=== PATIENT | male | born 1950 | race Caucasian/White ===

== ENCOUNTER 2017-08-29 22:29 | Emergency (ER) | payer MEDICARE, OTHER ==
[2017-08-29] MEDS ORDERED: Acetaminophen/oxyCODONE 325-5 MG Tab PO ONE ×2 (22:30)
[2017-08-29] MEDS ORDERED: Ondansetron 4 MG Tab.DIS PO ONE (22:30)
[2017-08-29 22:39] VITALS: BP 157/103
[2017-08-29] MEDS ORDERED: Sodium Chloride 0.9% 1,000 ML IV ONE (22:39)
--- NOTE | 2017-08-29 23:15 | EDM.PDOC ---
ED HPI GENERAL MEDICAL PROBLEM - General Chief Complaint: Abdominal Pain Stated Complaint: right side pain, fever Time Seen by Provider: 08/29/17 22:36 Source of Information: Reports: Patient History Limitations: Reports: No Limitations - History of Present Illness INITIAL COMMENTS - FREE TEXT/NARRATIVE: This patient is a 67 year old female that presents to the ER. Patient reports that he got home and ate a cheese sandwhich and a hamburger and beans, then developed abdominal pain at about 9pm. Patient reports that he did have nausea. He reprots he became diaphoretic. 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 He reports he is scheduled for biopsies on Tuesday and Scope on in [facility]. Patient reports that he also had chills and thought he may have a fever. Patient reports pain is in the RLQ and umbilical region. Patient denies chavez, dizziness, v , d, cough, cold congestion, neck pain, neck stiffness, cp, soa, urinary/bowel changes. Onset: Today Onset Date: 08/29/17 Onset Time: 21:00 Duration: Improving Location: Reports: Abdomen Quality: Reports: Dull, Sharp Severity: Moderate Improves with: Reports: None Worsens with: Reports: None Associated Symptoms: Reports: Diaphoresis, Fever/Chills, Nausea/Vomiting. Denies: Confusion, Chest Pain, Cough, cough w sputum, Headaches, Loss of Appetite, Malaise, Rash, Seizure, Shortness of Breath, Syncope, Weakness Right Middle Abdominal Pain Score (Numeric/FACES): 9 - Related Data Allergies Allergy/AdvReac Type Severity Reaction Status Date / Time erythromycin base Allergy Indigestion Verified 08/29/17 22:41 Home Meds: Home Meds Aspirin [Children's Aspirin] 81 mg PO DAILY 12/28/14 [History] Cholecalciferol (Vitamin D3) [Vitamin D] 5,000 mg PO DAILY 12/28/14 [History] Losartan [Cozaar] 50 mg PO DAILY 12/28/14 [History] Metoprolol Succinate 25 mg PO DAILY 12/28/14 [History] Ranitidine [Zantac] 150 mg PO DAILY 12/28/14 [History] Social & Family History - Tobacco Use Smoking Status *Q: Never Smoker Second Hand Smoke Exposure: No - Alcohol Use Days Per Week of Alcohol Use: 0 - Recreational Drug Use Recreational Drug Use: No ED ROS GENERAL - Review of Systems Review Of Systems: See Below Constitutional: Reports: Fever, Chills, Diaphoresis HEENT: Reports: No Symptoms Respiratory: Reports: No Symptoms Cardiovascular: Reports: No Symptoms Endocrine: Reports: No Symptoms GI/Abdominal: Reports: Abdominal Pain, Nausea. Denies: Diarrhea, Vomiting : Reports: No Symptoms Musculoskeletal: Reports: No Symptoms Skin: Reports: No Symptoms Neurological: Reports: No Symptoms Psychiatric: Reports: No Symptoms Hematologic/Lymphatic: Reports: No Symptoms Immunologic: Reports: No Symptoms ED EXAM, GI/ABD - Physical Exam Exam: See Below Exam Limited By: No Limitations General Appearance: Alert, WD/WN, No Apparent Distress Eyes: Bilateral: Normal Appearance Ears: Normal External Exam, Normal Canal, Hearing Grossly Normal, Normal TMs Nose: Normal Inspection, Normal Mucosa, No Blood Throat/Mouth: Normal Inspection, Normal Lips, Normal Teeth, Normal Gums, Normal Oropharynx, Normal Voice, No Airway Compromise Head: Atraumatic, Normocephalic Neck: Normal Inspection, Supple, Non-Tender, Full Range of Motion Respiratory/Chest: No Respiratory Distress, Lungs Clear, Normal Breath Sounds, No Accessory Muscle Use, Chest Non-Tender Cardiovascular: Normal Peripheral Pulses, Regular Rate, Rhythm, No Edema, No Gallop, No JVD, No Murmur, No Rub GI/Abdominal Exam: Normal Bowel Sounds, Soft, No Organomegaly, No Abnormal Bruit , No Mass, Pelvis Stable, Distended, Rebound, Tender (umbilical. RLQ. ) Back Exam: Normal Inspection, Full Range of Motion. No: CVA Tenderness (L), CVA Tenderness (R) Extremities: Normal Inspection, Normal Range of Motion, Non-Tender, No Pedal Edema, Normal Capillary Refill Neurological: Alert, Oriented, Normal Cognition, Normal Gait, No Motor/Sensory Deficits Psychiatric: Normal Affect, Normal Mood Skin Exam: Warm, Dry, Intact, Normal Color, No Rash Lymphatic: No Adenopathy Course - Vital Signs Last Recorded V/S: Last Vital Signs Temp 98.2 F 08/29/17 22:29 Pulse 83 08/29/17 22:29 Resp 20 08/29/17 22:29 BP 157/103 H 08/29/17 22:29 Pulse Ox 96 08/29/17 22:29 - Orders/Labs/Meds Orders: Active Orders 24 hr Category Date Time Status Abdomen Pelvis w Cont [CT] Stat Exams 08/29/17 22:39 Taken CULTURE BLOOD [BC] Stat Lab 08/29/17 23:15 Received CULTURE BLOOD [BC] Stat Lab 08/29/17 23:20 Received Acetaminophen/oxyCODONE [Take Home: Acetaminophen/ Med 08/30/17 01:25 Once oxyCODON, 2 Tab Pack] 2 packet PO ONETIME ONE Ondansetron [Take Home: Ondansetron ODT 4 MG, 2 Tab Med 08/30/17 01:25 Once Pack] 1 packet PO ONETIME ONE Tamsulosin [Flomax] Med 08/30/17 01:25 Once 0.4 mg PO ONETIME ONE Blood Culture x2 Reflex Set [OM.PC] Stat Oth 08/29/17 22:38 Ordered Labs: Laboratory Tests 08/29/17 08/29/17 08/29/17 Range/Units 23:00 23:10 23:15 WBC 12.4 H (5.0-10.0) 10^3/uL RBC 4.45 L (4.50-6.00) 10^6/uL Hgb 13.4 L (14.0-18.0) g/dL Hct 39.7 L (40.0-54.0) % MCV 89.2 (82.0-94.0) fL MCH 30.1 (27.0-32.0) pg MCHC 33.8 (33.0-38.0) g/dL RDW Coeff of Willa 12.4 (11.0-15.0) % Plt Count 310 (150-400) 10^3/uL Neut % (Auto) 83.1 (35-85) % Lymph % (Auto) 8.1 L (10-55) % Faulk % (Auto) 8.2 (0-16) % Eos % (Auto) 0.4 (0-5) % Baso % (Auto) 0.2 (0-3) % Neut # (Auto) 10.30 H (1.80-7.00) 10^3/uL Lymph # (Auto) 1.01 (1.00-4.80) 10^3/uL Faulk # (Auto) 1.02 H (0.00-0.80) 10^3/uL Eos # (Auto) 0.05 (0.00-0.45) 10^3/uL Baso # (Auto) 0.02 10^3/uL Sodium 139 (136-145) mEq/L Potassium 3.8 (3.5-5.0) mEq/L Chloride 104 (98-106) mEq/L Carbon Dioxide 26 (21-32) mmol/L BUN 18 D (7-18) mg/dL Creatinine 1.3 (0.7-1.3) mg/dL Est Cr Clr Drug Dosing 57.71 mL/min Estimated GFR (MDRD) 55 L (>=60) mL/min Glucose 168 H D (75-99) mg/dL Lactic Acid (0.4-2.0) mmol/L Calcium 9.2 (8.4-10.1) mg/dL Total Bilirubin 0.4 (0.0-1.0) mg/dL AST 26 (15-37) U/L ALT 29 (12-78) U/L Alkaline Phosphatase 132 H (46-116) U/L Troponin I (0.00-0.06) ng/mL Total Protein 7.2 (6.4-8.2) g/dL Albumin 3.3 L (3.4-5.0) g/dL Amylase 60 (25-115) U/L Urine Color Dark yellow (YELLOW) Urine Appearance Slightly cloudy (CLEAR) Urine pH 7.0 (4.5-8.0) Ur Specific Doon 1.020 (1.003-1.020) Urine Protein 30 H (NEGATIVE) mg/dL Urine Glucose (UA) Negative (NEGATIVE) mg/dL Urine Ketones 15 H (NEGATIVE) mg/dL Urine Occult Blood Large H (NEGATIVE) Urine Nitrite Negative (NEGATIVE) Urine Bilirubin Negative (NEGATIVE) Urine Urobilinogen 0.2 (0.2-1.0) EU/dL Ur Leukocyte Esterase Negative (NEGATIVE) Urine RBC >100 H (0-5) /HPF Urine WBC 0-5 (0-5) /HPF Ur Squamous Epith Cells Occasional H (NOT SEEN) /HPF 08/29/17 08/29/17 Range/Units 23:15 23:15 WBC (5.0-10.0) 10^3/uL RBC (4.50-6.00) 10^6/uL Hgb (14.0-18.0) g/dL Hct (40.0-54.0) % MCV (82.0-94.0) fL MCH (27.0-32.0) pg MCHC (33.0-38.0) g/dL RDW Coeff of Willa (11.0-15.0) % Plt Count (150-400) 10^3/uL Neut % (Auto) (35-85) % Lymph % (Auto) (10-55) % Faulk % (Auto) (0-16) % Eos % (Auto) (0-5) % Baso % (Auto) (0-3) % Neut # (Auto) (1.80-7.00) 10^3/uL Lymph # (Auto) (1.00-4.80) 10^3/uL Faulk # (Auto) (0.00-0.80) 10^3/uL Eos # (Auto) (0.00-0.45) 10^3/uL Baso # (Auto) 10^3/uL Sodium (136-145) mEq/L Potassium (3.5-5.0) mEq/L Chloride (98-106) mEq/L Carbon Dioxide (21-32) mmol/L BUN (7-18) mg/dL Creatinine (0.7-1.3) mg/dL Est Cr Clr Drug Dosing mL/min Estimated GFR (MDRD) (>=60) mL/min Glucose (75-99) mg/dL Lactic Acid 2.2 H (0.4-2.0) mmol/L Calcium (8.4-10.1) mg/dL Total Bilirubin (0.0-1.0) mg/dL AST (15-37) U/L ALT (12-78) U/L Alkaline Phosphatase (46-116) U/L Troponin I < 0.017 (0.00-0.06) ng/mL Total Protein (6.4-8.2) g/dL Albumin (3.4-5.0) g/dL Amylase (25-115) U/L Urine Color (YELLOW) Urine Appearance (CLEAR) Urine pH (4.5-8.0) Ur Specific Doon (1.003-1.020) Urine Protein (NEGATIVE) mg/dL Urine Glucose (UA) (NEGATIVE) mg/dL Urine Ketones (NEGATIVE) mg/dL Urine Occult Blood (NEGATIVE) Urine Nitrite (NEGATIVE) Urine Bilirubin (NEGATIVE) Urine Urobilinogen (0.2-1.0) EU/dL Ur Leukocyte Esterase (NEGATIVE) Urine RBC (0-5) /HPF Urine WBC (0-5) /HPF Ur Squamous Epith Cells (NOT SEEN) /HPF Meds: Medications Discontinued Medications Generic Name Dose Route Start Last Admin Trade Name Freq PRN Reason Stop Dose Admin Sodium Chloride 1,000 mls @ 1,000 mls/hr 08/29/17 22:39 08/29/17 23:03 Normal Saline IV 08/29/17 23:38 1,000 mls/hr .BOLUS ONE Administration Iopamidol 100 ml 08/29/17 23:19 08/29/17 23:44 Isovue-300 (61%) IVPUSH 08/29/17 23:20 100 ml ONETIME ONE Administration Morphine Sulfate 4 mg 08/30/17 00:26 08/30/17 00:36 Morphine IVPUSH 08/30/17 00:27 4 mg ONETIME ONE Administration Ondansetron HCl 4 mg 08/30/17 00:26 08/30/17 00:36 Zofran IVPUSH 08/30/17 00:27 4 mg NOW STA Administration - Radiology Interpretation Free Text/Narrative:: CT Abd/Pelvis: Discussed with radiologist; 6mm stone left upper ureter. Masses present from previous scan. Only acute change from pervious scan is ureter stone. CT Results Date: 08/30/17 CT Results Time: 01:20 - Re-Assessments/Exams Free Text/Narrative Re-Assessment/Exam: 08/30/17 00:30 Patient does now report he is having an urge to urinate and right flank pain. He thinks is may be a kidney stone now. Patient does have hematuria. Departure - Departure Time of Disposition: 01:29 Disposition: Home, Self-Care 01 Condition: Fair Clinical Impression: Ureteral stone - Discharge Information Instructions: Pain Medicine Instructions, [id number], Kidney Stones, Easy-to- Read Referrals: Blayne Schwartz MD [Primary Care Provider] - Forms: ED Department Discharge Additional Instructions: Followup with your primary care provider Followup with scheduled tests in [place] Return to the ER for worsening of condition or any emergent concerns Increase fluids Percocet 5/325mg 1-2 pills every 4-6 hours as needed for pain #15 no refill, #4 take home. Zofran 4mg ODT 1 pill every 6 hours as needed for nausea #12 no refill, #2 take home. Flomax 0.4mg 1 pill once a day #7 no refill - My Orders Last 24 Hours: My Active Orders 08/29/17 22:38 Blood Culture x2 Reflex Set [OM.PC] Stat 08/29/17 22:39 Abdomen Pelvis w Cont [CT] Stat 08/29/17 23:15 CULTURE BLOOD [BC] Stat 08/29/17 23:20 CULTURE BLOOD [BC] Stat 08/30/17 01:25 Acetaminophen/oxyCODONE [Take Home: Acetaminophen/oxyCODON, 2 Tab Pack] 2 packet PO ONETIME ONE Ondansetron [Take Home: Ondansetron ODT 4 MG, 2 Tab Pack] 1 packet PO ONETIME ONE Tamsulosin [Flomax] 0.4 mg PO ONETIME ONE - Assessment/Plan Last 24 Hours: My Active Orders 08/29/17 22:38 Blood Culture x2 Reflex Set [OM.PC] Stat 08/29/17 22:39 Abdomen Pelvis w Cont [CT] Stat 08/29/17 23:15 CULTURE BLOOD [BC] Stat 08/29/17 23:20 CULTURE BLOOD [BC] Stat 08/30/17 01:25 Acetaminophen/oxyCODONE [Take Home: Acetaminophen/oxyCODON, 2 Tab Pack] 2 packet PO ONETIME ONE Ondansetron [Take Home: Ondansetron ODT 4 MG, 2 Tab Pack] 1 packet PO ONETIME ONE Tamsulosin [Flomax] 0.4 mg PO ONETIME ONE Plan: PLEASE SEE RN NOTE FOR PFSH.
[2017-08-29] MEDS ORDERED: Iopamidol 612 MG/ML 100 ML Bottle IVPUSH ONE (23:19)
[2017-08-30] MEDS ORDERED: Morphine 4 MG/ML Syringe IVPUSH ONE (00:26)
[2017-08-30] MEDS ORDERED: Ondansetron 4 MG/2 ML SDV IVPUSH STA (00:26)
[2017-08-30] MEDS ORDERED: Take Home: Acetaminophen/oxyCODONE 325-5 MG, 2 Tab Pack PO ONE (01:25)
[2017-08-30] MEDS ORDERED: Tamsulosin 0.4 MG Cap.ER PO ONE (01:25)
[2017-08-30] MEDS ORDERED: Take Home: Ondansetron 4 MG Tab.DIS, 2 Tab Pack PO ONE (01:25)
== END 2017-08-30 01:43 | disposition home or self-care (01) ==
LOC: CC.ED 22:29
DX: N20.1 Calculus of ureter (principal); Z79.82 Long term (current) use of aspirin; Z79.899 Other long term (current) drug therapy; Z88.1 Allergy status to other antibiotic agents
CPT/HCPCS: 36415; 74177; 80053; 81001; 82150; 83605; 84484; 85025; 87040; 96361; 96374; 96375; 99284; A9270; J2270; J2405; J7030; Q9967; 96365

== ENCOUNTER 2018-02-10 10:11 | Inpatient (IN) | payer MEDICARE, OTHER ==
[2018-02-10] MEDS ORDERED: Lactated Ringers 1,000 ML IV ONE (10:53)
--- NOTE | 2018-02-10 10:54 | EDM.PDOC ---
ED HPI GENERAL MEDICAL PROBLEM - General Chief Complaint: General Stated Complaint: THINK DEHYDRATED Time Seen by Provider: 02/10/18 10:38 Source of Information: Reports: Patient History Limitations: Reports: No Limitations - History of Present Illness INITIAL COMMENTS - FREE TEXT/NARRATIVE: Ronaldo is a pleasant 67 year old male with a PMH of lymphoma, hypertension, hyperlipidemia, BPH, Type II DM, who presents to the ED with complaints of fatigue and weakness. He has also had a fever, as high as 102 deg F, last evening. He reports at the time of that temperature, he did have a heating pad on. His fever has been ~ 100.5 deg F since then. He reports he just finished a 6 week round of chemo therapy on Tuesday. He reports that they always do a spinal tap at his visits. They initially thought they saw something on the culture, but it ended up being negative. He reports he spent a couple extra days in [place] awaiting these results. He reports he did come in for IVF on 08/2018 as he was feeling weak. He reports that yesterday evening he began feeling very run down. He reports that through the night he had a fever and was extremely weak. He reports that his hemoglobin as 7.9 last time it was checked. He reports he has been somewhat short of breath. Denies any cough, chest pain, urinary symptoms, vomiting, diarrhea. He reports he has been somewhat nauseated. He has not been eating or drinking much the last few days. Onset Date: 02/03/18 Duration: Getting Worse Location: Reports: Generalized Associated Symptoms: Reports: Fever/Chills, Loss of Appetite, Shortness of Breath, Weakness. 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 - Related Data Allergies Allergy/AdvReac Type Severity Reaction Status Date / Time erythromycin base Allergy Indigestion Verified 02/10/18 10:14 hydromorphone [From Dilaudid] Allergy Nausea and Verified 02/10/18 10:14 Vomiting Home Meds: Home Meds Cholecalciferol (Vitamin D3) [Vitamin D] 5,000 mg PO DAILY 12/28/14 [History] Losartan [Cozaar] 50 mg PO DAILY 12/28/14 [History] Metoprolol Succinate 25 mg PO DAILY 12/28/14 [History] Ranitidine [Zantac] 150 mg PO DAILY 12/28/14 [History] Sertraline [Zoloft] 50 mg PO DAILY 10/25/17 [History] Loratadine [Claritin] 10 mg PO DAILY 01/26/18 [History] Polyethylene Glycol 3350 [MiraLAX] 17 gm PO DAILY 01/26/18 [History] Sennosides [Senna] 8.6 mg PO DAILY 01/26/18 [History] diphenhydrAMINE [Benadryl] 25 mg PO DAILY 01/26/18 [History] Past Medical History Cardiovascular History: Reports: Hypertension Genitourinary History: Reports: Renal Calculus - Past Surgical History HEENT Surgical History: Reports: Other (See Below) Other HEENT Surgeries/Procedures: lifted eye lids Cardiovascular Surgical History: Reports: None GI Surgical History: Reports: Colonoscopy Male Surgical History: Reports: None Social & Family History - Family History Family Medical History: Noncontributory - Tobacco Use Smoking Status *Q: Never Smoker Second Hand Smoke Exposure: No - Alcohol Use Days Per Week of Alcohol Use: 0 - Recreational Drug Use Recreational Drug Use: No ED ROS GENERAL - Review of Systems Review Of Systems: See Below Constitutional: Reports: Fever, Chills, Weakness, Fatigue, Decreased Appetite HEENT: Reports: Other (tongue numbness & hoarseness) Respiratory: Reports: Shortness of Breath. Denies: Wheezing, Pleuritic Chest Pain, Cough, Sputum, Hemoptysis Cardiovascular: Reports: Dyspnea on Exertion, Lightheadedness. Denies: Chest Pain, Blood Pressure Problem, Edema, Palpitations, Syncope Endocrine: Reports: Fatigue GI/Abdominal: Reports: Decreased Appetite, Nausea. Denies: Abdominal Pain, Black Stool, Bloody Stool, Constipation, Diarrhea, Hematochezia, Melena, Vomiting : Reports: No Symptoms. Denies: Dysuria, Frequency, Urgency ED EXAM, GENERAL - Physical Exam Exam: See Below Exam Limited By: No Limitations General Appearance: Alert, Moderate Distress Eye Exam: Bilateral Eye: PERRL Throat/Mouth: Normal Inspection, Normal Lips, Normal Teeth, Normal Gums, Normal Oropharynx, Normal Voice, No Airway Compromise, Other (dry mucous membranes) Head: Atraumatic, Normocephalic Neck: Normal Inspection, Supple, Non-Tender, Full Range of Motion Respiratory/Chest: No Respiratory Distress, Lungs Clear, Normal Breath Sounds, No Accessory Muscle Use, Chest Non-Tender Cardiovascular: Normal Peripheral Pulses, Regular Rate, Rhythm, No Edema, No Gallop, No JVD, No Murmur, No Rub GI/Abdominal: Normal Bowel Sounds, Soft, Non-Tender, No Organomegaly, No Distention, No Abnormal Bruit, No Mass Back Exam: Normal Inspection, Full Range of Motion. No: CVA Tenderness (L), CVA Tenderness (R) Extremities: Normal Inspection, Normal Range of Motion, Non-Tender, Normal Capillary Refill, No Pedal Edema Neurological: Alert, Oriented, CN II-XII Intact, Normal Cognition, Normal Gait, Normal Reflexes, No Motor/Sensory Deficits Psychiatric: Normal Affect, Normal Mood Skin Exam: Warm, Dry, Intact, Pallor Lymphatic: No Adenopathy Course - Vital Signs Last Recorded V/S: Last Vital Signs Temp 99.1 F 02/11/18 10:16 Pulse 120 H 02/11/18 10:16 Resp 28 H 02/11/18 10:16 BP 94/55 L 02/11/18 10:16 Pulse Ox 100 02/11/18 10:16 - Orders/Labs/Meds Orders: Active Orders 24 hr Category Date Time Status Up With Assistance [RC] .PRN Care 02/10/18 11:36 Active Vital Signs [RC] 0000,0400,0800,1200,1600,2000 Care 02/10/18 11:36 Active Consistent Carbohydrate Diet [DIET] Diet 02/10/18 Lunch Active BASIC METABOLIC PANEL,BMP [CHEM] DAILY Lab 02/12/18 06:00 Ordered BASIC METABOLIC PANEL,BMP [CHEM] DAILY Lab 02/13/18 06:00 Ordered C-REACTIVE PROTEIN [CHEM] DAILY Lab 02/12/18 06:00 Ordered C-REACTIVE PROTEIN [CHEM] DAILY Lab 02/13/18 06:00 Ordered CBC WITH AUTO DIFF [HEME] DAILY Lab 02/12/18 06:00 Ordered CBC WITH AUTO DIFF [HEME] DAILY Lab 02/13/18 06:00 Ordered Acetaminophen [Tylenol] Med 02/10/18 11:36 Active 650 mg PO Q4H PRN Magnesium Hydroxide [Milk of Magnesia] Med 02/10/18 11:36 Active 30 ml PO Q12H PRN Meropenem [Merrem] Med 02/10/18 12:00 Active 1 gm IVPUSH Q8H Temazepam [Restoril] Med 02/10/18 11:36 Active 15 mg PO BEDTIME PRN Transfuse Platelets [COMM] Routine Oth 02/10/18 11:36 Ordered Resuscitation Status Routine Resus Stat 02/10/18 11:31 Ordered Medication Orders Acetaminophen (Tylenol) 650 mg PO Q4H PRN PRN Reason: Pain (Mild 1-3)/fever Last Admin: 02/10/18 23:43 Dose: 650 mg Admin: 02/10/18 16:19 Dose: 650 mg Diphenhydramine HCl (Benadryl) 25 mg PO DAILY [facility] Last Admin: 02/11/18 07:50 Dose: 25 mg Famotidine (Pepcid) 20 mg PO DAILY [facility] Last Admin: 02/11/18 07:52 Dose: 20 mg Lactated Ringer's (Ringers, Lactated) 1,000 mls @ 150 mls/hr IV ASDIRECTED [facility] Last Admin: 02/11/18 07:48 Dose: 150 mls/hr Potassium Chloride 40 meq/ (Premix) 100 mls @ 25 mls/hr IV ONETIME ONE Stop: 02/11/18 12:20 Last Admin: 02/11/18 08:35 Dose: 25 mls/hr Ibuprofen (Motrin) 400 mg PO Q6H PRN PRN Reason: Pain Last Admin: 02/11/18 07:53 Dose: 400 mg Admin: 02/10/18 19:33 Dose: 400 mg Loratadine (Claritin) 10 mg PO DAILY [facility] Last Admin: 02/11/18 07:51 Dose: 10 mg Losartan Potassium (Cozaar) 50 mg PO DAILY [facility] Last Admin: 02/11/18 07:51 Dose: 50 mg Magnesium Hydroxide (Milk Of Magnesia) 30 ml PO Q12H PRN PRN Reason: Constipation Meropenem (Merrem) 1 gm IVPUSH Q8H [facility] Last Admin: 02/11/18 03:14 Dose: 1 gm Admin: 02/10/18 19:22 Dose: 1 gm Admin: 02/10/18 12:05 Dose: 1 gm Metoprolol Succinate (Toprol Xl) 25 mg PO DAILY [facility] Last Admin: 02/11/18 07:52 Dose: 25 mg Ptom Magic Mouth (Wash Solution) 0 each PO Q3H PRN PRN Reason: SWISH AND SPIT Ondansetron HCl (Zofran) 4 mg IVPUSH Q6H PRN PRN Reason: Nausea Last Admin: 02/10/18 13:44 Dose: 4 mg Polyethylene Glycol (Miralax) 17 gm PO DAILY [facility] Last Admin: 02/11/18 07:52 Dose: Senna (Senna) 8.6 mg PO DAILY [facility] Last Admin: 02/11/18 07:52 Dose: Sertraline HCl (Zoloft) 50 mg PO DAILY [facility] Last Admin: 02/11/18 07:53 Dose: 50 mg Temazepam (Restoril) 15 mg PO BEDTIME PRN PRN Reason: Sleep Labs: Laboratory Tests 02/10/18 02/10/18 02/10/18 Range/Units 10:28 10:52 11:00 WBC 0.2 L* (5.0-10.0) 10^3/uL RBC 2.45 L (4.50-6.00) 10^6/uL Hgb 7.8 L* (14.0-18.0) g/dL Hct 23.0 L (40.0-54.0) % MCV 93.9 (82.0-94.0) fL MCH 31.8 (27.0-32.0) pg MCHC 33.9 (33.0-38.0) g/dL RDW Coeff of Willa 14.5 (11.0-15.0) % Plt Count 11 L* (150-400) 10^3/uL Neut % (Auto) 6.6 L (35-85) % Lymph % (Auto) 86.7 H (10-55) % [place] % (Auto) 0 (0-16) % Eos % (Auto) 6.7 H (0-5) % Baso % (Auto) 0 (0-3) % Neut # (Auto) 0.01 L (1.80-7.00) 10^3/uL Lymph # (Auto) 0.13 L (1.00-4.80) 10^3/uL [place] # (Auto) 0.00 (0.00-0.80) 10^3/uL Eos # (Auto) 0.01 (0.00-0.45) 10^3/uL Baso # (Auto) 0.00 10^3/uL Sodium (136-145) mEq/L Potassium (3.5-5.0) mEq/L Chloride (98-106) mEq/L Carbon Dioxide (21-32) mmol/L BUN (7-18) mg/dL Creatinine (0.7-1.3) mg/dL Est Cr Clr Drug Dosing mL/min Estimated GFR (MDRD) (>=60) mL/min Glucose (75-99) mg/dL Lactic Acid (0.4-2.0) mmol/L Calcium (8.4-10.1) mg/dL Total Bilirubin (0.0-1.0) mg/dL AST (15-37) U/L ALT (12-78) U/L Alkaline Phosphatase (46-116) U/L C-Reactive Protein 25.1 H (0.2-0.8) mg/dL Total Protein (6.4-8.2) g/dL Albumin (3.4-5.0) g/dL Urine Color Dary (YELLOW) Urine Appearance Clear (CLEAR) Urine pH 5.0 (4.5-8.0) Ur Specific Circle >= 1.030 H (1.003-1.020) Urine Protein 100 H (NEGATIVE) mg/dL Urine Glucose (UA) Negative (NEGATIVE) mg/dL Urine Ketones Trace H (NEGATIVE) mg/dL Urine Occult Blood Negative (NEGATIVE) Urine Nitrite Negative (NEGATIVE) Urine Bilirubin Negative (NEGATIVE) Urine Urobilinogen 0.2 (0.2-1.0) EU/dL Ur Leukocyte Esterase Negative (NEGATIVE) Urine RBC Not seen (0-5) /HPF Urine WBC Not seen (0-5) /HPF Amorphous Sediment Moderate H (NOT SEEN) /HPF Urine Mucus Moderate H (NOT SEEN) /HPF Blood Type 02/10/18 02/10/18 02/10/18 Range/Units 11:00 11:00 11:00 WBC (5.0-10.0) 10^3/uL RBC (4.50-6.00) 10^6/uL Hgb (14.0-18.0) g/dL Hct (40.0-54.0) % MCV (82.0-94.0) fL MCH (27.0-32.0) pg MCHC (33.0-38.0) g/dL RDW Coeff of Willa (11.0-15.0) % Plt Count (150-400) 10^3/uL Neut % (Auto) (35-85) % Lymph % (Auto) (10-55) % [place] % (Auto) (0-16) % Eos % (Auto) (0-5) % Baso % (Auto) (0-3) % Neut # (Auto) (1.80-7.00) 10^3/uL Lymph # (Auto) (1.00-4.80) 10^3/uL [place] # (Auto) (0.00-0.80) 10^3/uL Eos # (Auto) (0.00-0.45) 10^3/uL Baso # (Auto) 10^3/uL Sodium 140 (136-145) mEq/L Potassium 3.7 (3.5-5.0) mEq/L Chloride 104 (98-106) mEq/L Carbon Dioxide 19 L (21-32) mmol/L BUN 21 H D (7-18) mg/dL Creatinine 1.2 (0.7-1.3) mg/dL Est Cr Clr Drug Dosing 62.52 mL/min Estimated GFR (MDRD) > 60 (>=60) mL/min Glucose 226 H D (75-99) mg/dL Lactic Acid 5.5 H (0.4-2.0) mmol/L Calcium 8.1 L (8.4-10.1) mg/dL Total Bilirubin 0.8 (0.0-1.0) mg/dL AST 7 L (15-37) U/L ALT 22 (12-78) U/L Alkaline Phosphatase 89 (46-116) U/L C-Reactive Protein (0.2-0.8) mg/dL Total Protein 6.1 L (6.4-8.2) g/dL Albumin 2.9 L (3.4-5.0) g/dL Urine Color (YELLOW) Urine Appearance (CLEAR) Urine pH (4.5-8.0) Ur Specific Circle (1.003-1.020) Urine Protein (NEGATIVE) mg/dL Urine Glucose (UA) (NEGATIVE) mg/dL Urine Ketones (NEGATIVE) mg/dL Urine Occult Blood (NEGATIVE) Urine Nitrite (NEGATIVE) Urine Bilirubin (NEGATIVE) Urine Urobilinogen (0.2-1.0) EU/dL Ur Leukocyte Esterase (NEGATIVE) Urine RBC (0-5) /HPF Urine WBC (0-5) /HPF Amorphous Sediment (NOT SEEN) /HPF Urine Mucus (NOT SEEN) /HPF Blood Type O POSITIVE Meds: Medications Generic Name Dose Route Start Last Admin Trade Name Freq PRN Reason Stop Dose Admin Acetaminophen 650 mg 02/10/18 11:36 02/10/18 23:43 Tylenol PO 650 mg Q4H PRN Administration Pain (Mild 1-3)/fever Diphenhydramine HCl 25 mg 02/11/18 08:00 02/11/18 07:50 Benadryl PO 25 mg DAILY [facility] Administration Famotidine 20 mg 02/11/18 08:00 02/11/18 07:52 Pepcid PO 20 mg DAILY [facility] Administration Lactated Ringer's 1,000 mls @ 150 mls/hr 02/10/18 23:51 02/11/18 07:48 Ringers, Lactated IV 150 mls/hr ASDIRECTED [facility] Administration Potassium Chloride 40 meq/ 100 mls @ 25 mls/hr 02/11/18 08:21 02/11/18 08:35 Premix IV 02/11/18 12:20 25 mls/hr ONETIME ONE Administration Ibuprofen 400 mg 02/10/18 17:31 02/11/18 07:53 Motrin PO 400 mg Q6H PRN Administration Pain Loratadine 10 mg 02/11/18 08:00 02/11/18 07:51 Claritin PO 10 mg DAILY [facility] Administration Losartan Potassium 50 mg 02/11/18 08:00 02/11/18 07:51 Cozaar PO 50 mg DAILY [facility] Administration Magnesium Hydroxide 30 ml 02/10/18 11:36 Milk Of Magnesia PO Q12H PRN Constipation Meropenem 1 gm 02/10/18 12:00 02/11/18 03:14 Merrem IVPUSH 1 gm Q8H [facility] Administration Metoprolol Succinate 25 mg 02/11/18 08:00 02/11/18 07:52 Toprol Xl PO 25 mg DAILY [facility] Administration Ptom Magic Mouth 0 each 02/10/18 13:38 Wash Solution PO Q3H PRN SWISH AND SPIT Ondansetron HCl 4 mg 02/10/18 10:59 02/10/18 13:44 Zofran IVPUSH 4 mg Q6H PRN Administration Nausea Polyethylene Glycol 17 gm 02/11/18 08:00 02/11/18 07:52 Miralax PO Not Given DAILY [facility] Senna 8.6 mg 02/11/18 08:00 02/11/18 07:52 Senna PO Not Given DAILY [facility] Sertraline HCl 50 mg 02/11/18 08:00 02/11/18 07:53 Zoloft PO 50 mg DAILY [facility] Administration Temazepam 15 mg 02/10/18 11:36 Restoril PO BEDTIME PRN Sleep Discontinued Medications Generic Name Dose Route Start Last Admin Trade Name Freq PRN Reason Stop Dose Admin Al Hydroxide/Mg Hydroxide 5 ml 0 ml 02/10/18 13:32 / Diphenhydramine HCl 12.5 mg/ PO Lidocaine HCl 5 ml ASDIRECTED PRN Pain Lactated Ringer's 1,000 mls @ 500 mls/hr 02/10/18 10:53 02/10/18 11:00 Ringers, Lactated IV 02/10/18 12:52 500 mls/hr .BOLUS ONE Administration Lactated Ringer's 1,000 mls @ 100 mls/hr 02/10/18 11:45 02/10/18 23:21 Ringers, Lactated IV 100 mls/hr ASDIRECTED [facility] Administration - Re-Assessments/Exams Free Text/Narrative Re-Assessment/Exam: WBC, platelets, and hemoglobin critically low. Discussed case with patient's oncologist at [facility]. He discussed that these lab results are expected at this point in his therapy. He has already received Neulasta. He recommends hydrating him and giving him empiric antibiotics. Recommends transfusing 1 unit platelets to keep platelets above 20. No obvious signs of bleeding. Departure - Departure Time of Disposition: 11:25 Disposition: Admitted As Inpatient 67 Condition: Fair Clinical Impression: Lymphoma malignant, large cell, Thrombocytopenia due to drugs, Neutropenic fever Anemia Qualifiers: Anemia type: other cause Other causes of anemia: other cause, not classified Qualified Code(s): D64.89 - Other specified anemias - Discharge Information - Problem List & Annotations (1) Anemia SNOMED Code(s): 746264617 Code(s): D64.9 - ANEMIA, UNSPECIFIED Status: Acute Current Visit: Yes Qualifiers: Anemia type: other cause Other causes of anemia: other cause, not classified Qualified Code(s): D64.89 - Other specified anemias (2) Lymphoma malignant, large cell SNOMED Code(s): 127565874 Code(s): C85.80 - OTH TYPES OF NON-HODGKIN LYMPHOMA, UNSPECIFIED SITE Status: Acute Current Visit: Yes (3) Neutropenic fever SNOMED Code(s): 210989969 Code(s): D70.9 - NEUTROPENIA, UNSPECIFIED; R50.81 - FEVER PRESENTING WITH CONDITIONS CLASSIFIED ELSEWHERE Status: Acute Current Visit: Yes (4) Thrombocytopenia due to drugs SNOMED Code(s): 237946527 Code(s): D69.59 - OTHER SECONDARY THROMBOCYTOPENIA; T50.905A - ADVERSE EFFECT OF UNSP DRUG/MEDS/BIOL SUBST, INIT Status: Acute Current Visit: Yes - Problem List Review Problem List Initiated/Reviewed/Updated: Yes - My Orders Last 24 Hours: My Active Orders 02/10/18 11:31 Resuscitation Status Routine 02/10/18 11:36 Up With Assistance [RC] .PRN Vital Signs [RC] 0000,0400,0800,1200,1600,2000 Acetaminophen [Tylenol] 650 mg PO Q4H PRN Magnesium Hydroxide [Milk of Magnesia] 30 ml PO Q12H PRN Temazepam [Restoril] 15 mg PO BEDTIME PRN Transfuse Platelets [COMM] Routine 02/10/18 12:00 Meropenem [Merrem] 1 gm IVPUSH Q8H 02/10/18 Lunch Consistent Carbohydrate Diet [DIET] 02/12/18 06:00 BASIC METABOLIC PANEL,BMP [CHEM] DAILY C-REACTIVE PROTEIN [CHEM] DAILY CBC WITH AUTO DIFF [HEME] DAILY 02/13/18 06:00 BASIC METABOLIC PANEL,BMP [CHEM] DAILY C-REACTIVE PROTEIN [CHEM] DAILY CBC WITH AUTO DIFF [HEME] DAILY - Assessment/Plan Admission H&P: Please use this note as an admission H&P Last 24 Hours: My Active Orders 02/10/18 11:31 Resuscitation Status Routine 02/10/18 11:36 Up With Assistance [RC] .PRN Vital Signs [RC] 0000,0400,0800,1200,1600,2000 Acetaminophen [Tylenol] 650 mg PO Q4H PRN Magnesium Hydroxide [Milk of Magnesia] 30 ml PO Q12H PRN Temazepam [Restoril] 15 mg PO BEDTIME PRN Transfuse Platelets [COMM] Routine 02/10/18 12:00 Meropenem [Merrem] 1 gm IVPUSH Q8H 02/10/18 Lunch Consistent Carbohydrate Diet [DIET] 02/12/18 06:00 BASIC METABOLIC PANEL,BMP [CHEM] DAILY C-REACTIVE PROTEIN [CHEM] DAILY CBC WITH AUTO DIFF [HEME] DAILY 02/13/18 06:00 BASIC METABOLIC PANEL,BMP [CHEM] DAILY C-REACTIVE PROTEIN [CHEM] DAILY CBC WITH AUTO DIFF [HEME] DAILY Plan: Empiric antibiotics. No obvious source of infection identified. Transfuse 1 unit platelets. Will be ordered and transfused TSERING upon arrival tomorrow morning. IVF for hydration Monitor labs
[2018-02-10] MEDS ORDERED: Ondansetron 4 MG/2 ML SDV IVPUSH PRN (10:59)
[2018-02-10 11:06] LABS: CHLORIDE,CL 104 mEq/L (98-106); SODIUM,NA 140 mEq/L (136-145)
[2018-02-10] MEDS ORDERED: Temazepam 15 MG Cap PO PRN (11:36)
[2018-02-10] MEDS ORDERED: Magnesium Hydroxide 400 MG/5 ML Susp 30 ML Cup PO PRN (11:36)
[2018-02-10] MEDS: Meropenem 1 GM SDV IVPUSH SCH ×2 (12:05→19:22)
[2018-02-10] MEDS ORDERED: ALUM HYDROX PO PRN ×3 (13:32)
[2018-02-10] MEDS ORDERED: LIDOCAINE 2% PO PRN ×3 (13:32)
[2018-02-10] MEDS ORDERED: DIPHENHYDRAMINE PO PRN ×3 (13:32)
[2018-02-10] MEDS ORDERED: SIMETH PO PRN ×3 (13:32)
[2018-02-10] MEDS ORDERED: MAG HYDROX PO PRN ×3 (13:32)
[2018-02-10] MEDS ORDERED: MAGIC MOUTH WASH PO PRN (13:38)
[2018-02-10] MEDS: Lactated Ringers 1,000 ML IV SCH ×2 (13:42→23:21)
[2018-02-10] MEDS: Acetaminophen 325 MG Tab PO PRN ×2 (16:19→23:43)
[2018-02-10] MEDS: Ibuprofen 200 MG Tab PO PRN (19:33)
[2018-02-10] MEDS ORDERED: Lactated Ringers 1,000 ML IV SCH (23:51)
[2018-02-11] MEDS: Meropenem 1 GM SDV IVPUSH SCH (03:14)
[2018-02-11 07:18] LABS: CHLORIDE,CL 106 mEq/L (98-106); SODIUM,NA 141 mEq/L (136-145)
[2018-02-11] MEDS: Ibuprofen 200 MG Tab PO PRN (07:53)
[2018-02-11] MEDS ORDERED: diphenhydrAMINE 25 MG Cap PO SCH (08:00)
[2018-02-11] MEDS ORDERED: Loratadine 10 MG Tab PO SCH (08:00)
[2018-02-11] MEDS ORDERED: Famotidine 20 MG Tab PO SCH (08:00)
[2018-02-11] MEDS ORDERED: Polyethylene Glycol 3350 Powder 17 GM Packet PO SCH (08:00)
[2018-02-11] MEDS ORDERED: Sennosides 8.6 MG Tab PO SCH (08:00)
[2018-02-11] MEDS ORDERED: Metoprolol Succinate 25 MG Tab.ER PO SCH (08:00)
[2018-02-11] MEDS ORDERED: Sertraline 25 MG Tab PO SCH (08:00)
[2018-02-11] MEDS ORDERED: Losartan 25 MG Tab PO SCH (08:00)
[2018-02-11] MEDS ORDERED: Potassium Chloride 40 MEQ in Premix Bag 1 BAG IV ONE (08:21)
[2018-02-11 10:17] VITALS: BP 94/55
--- NOTE | 2018-02-11 12:57 | PCM.DCSUM1 ---
Discharge Summary - Hospital Course Free Text/Narrative:: Patient presented to ER with complaints of feeling very weak and running a fever. Patient had his 6th round of chemo of 6 last week and had done very well with his chemo. He states they do a spinal tap on his with every round of chemo and there were concerns with the last one about infection but the cultures were negative. He stayed in the hospital longer awaiting those results. Relates that he did get 2 units of blood last Tuesday as his hemoglobin had dropped to 7.9. He was feeling very weak on Tuesday the and presented here for IV fluids. He started running a fever of 102 at home, was using a heating pad and thought related to that but even after removing that. In ER, patient was found to have a WBC of 0.2, hemoglobin of 7.8. Brenda did consult with Dr. Carrillo and was advised to start IV Merepenum and keep platelets over 20. Platelets were ordered from [employer]. - Discharge Data Discharge Date: 02/11/18 Discharge Disposition: DC/Tfer to Acute Hospital 02 Condition: Fair - Patient Summary/Data Complications: neutropenic fever Hospital Course: Patient was admitted and started on IV fluids, Merepenum. Did continue to run a fever until evening when his fever broke. However, started to spike a fever of 101.2 this am. He also did have a drop of his blood pressure during the night, one arm of 88 systolic, the other arm 99. Did increase IV fluids. Patient has vomited 3x and now has developed diarrhea. Have not yet found source of fever, UA clear. Chest xray unremarkable. Awaiting blood cultures. Blood pressure improved this am, febrile. Does not feel as weak as yesterday; however, blood counts have dropped further. Potassium low at 2.9, IV 40 mEq potassium added to IV fluids. Hemoglobin dropped to 5.8, platelets down to 6. CRP has increased from 25 up to 47. Contacted [facility] and consulted with Dr. Glez, hospitalist. Agreed to accept the patient in transfer. Life flight arranged due to no availability of ALS coverage locally. and patient aware. Risks and benefits of transfer discussed with patient. Risk of transfer includes worsening status to include . Benefits of transfer include more intensive care with more local availability of blood products and need for ongoing testing to determine source of fever. Risks of nontransfer include worsening status or . Benefits of nontransfer include care close to home. Patient agrees to transfer. - Discharge Plan Home Medications: Home Meds Cholecalciferol (Vitamin D3) [Vitamin D] 5,000 mg PO DAILY 12/28/14 [History] Losartan [Cozaar] 50 mg PO DAILY 12/28/14 [History] Metoprolol Succinate 25 mg PO DAILY 12/28/14 [History] Ranitidine [Zantac] 150 mg PO DAILY 12/28/14 [History] Sertraline [Zoloft] 50 mg PO DAILY 10/25/17 [History] Loratadine [Claritin] 10 mg PO DAILY 01/26/18 [History] Polyethylene Glycol 3350 [MiraLAX] 17 gm PO DAILY 01/26/18 [History] Sennosides [Senna] 8.6 mg PO DAILY 01/26/18 [History] diphenhydrAMINE [Benadryl] 25 mg PO DAILY 01/26/18 [History] Forms: ED Department Discharge Referrals: Blayne Schwartz MD [Primary Care Provider] - - Discharge Summary/Plan Comment DC Time >30 min.: Yes - General Info Date of Service: 02/11/18 Admission Dx/Problem (Free Text: Neutropenic fever Functional Status: Reports: Pain Controlled. Denies: Ambulating - Review of Systems General: Reports: Fever, Weakness, Fatigue, Malaise HEENT: Reports: No Symptoms Pulmonary: Reports: Shortness of Breath. Denies: Cough, Sputum Cardiovascular: Denies: Chest Pain, Edema, Lightheadedness Gastrointestinal: Reports: Diarrhea, Nausea, Vomiting. Denies: Abdominal Pain Genitourinary: Reports: No Symptoms Musculoskeletal: Reports: No Symptoms Skin: Reports: Pallor Neurological: Reports: Weakness - Patient Data Vitals - Most Recent: Last Vital Signs Temp 99.1 F 02/11/18 10:16 Pulse 120 H 02/11/18 10:16 Resp 28 H 02/11/18 10:16 BP 94/55 L 02/11/18 10:16 Pulse Ox 100 02/11/18 10:16 Weight - Most Recent: 187 lb 1.6 oz I&O - Last 24 hours: Intake & Output 02/10/18 02/11/18 02/11/18 22:59 06:59 14:59 Intake Total 965 Balance 965 Lab Results - Last 24 hrs: Laboratory Results - last 24 hr 02/10/18 02/10/18 02/11/18 Range/Units 10:52 11:00 06:55 WBC 0.1 L* (5.0-10.0) 10^3/uL RBC 1.85 L (4.50-6.00) 10^6/uL Hgb 5.8 L* (14.0-18.0) g/dL Hct 17.1 L* (40.0-54.0) % MCV 92.4 (82.0-94.0) fL MCH 31.4 (27.0-32.0) pg MCHC 33.9 (33.0-38.0) g/dL RDW Coeff of Willa 14.3 (11.0-15.0) % Plt Count 6 L* (150-400) 10^3/uL Sodium (136-145) mEq/L Potassium (3.5-5.0) mEq/L Chloride (98-106) mEq/L Carbon Dioxide (21-32) mmol/L BUN (7-18) mg/dL Creatinine (0.7-1.3) mg/dL Est Cr Clr Drug Dosing mL/min Estimated GFR (MDRD) (>=60) mL/min Glucose (75-99) mg/dL Calcium (8.4-10.1) mg/dL C-Reactive Protein (0.2-0.8) mg/dL Urine Color Dary (YELLOW) Urine Appearance Clear (CLEAR) Urine pH 5.0 (4.5-8.0) Ur Specific Novelty >= 1.030 H (1.003-1.020) Urine Protein 100 H (NEGATIVE) mg/dL Urine Glucose (UA) Negative (NEGATIVE) mg/dL Urine Ketones Trace H (NEGATIVE) mg/dL Urine Occult Blood Negative (NEGATIVE) Urine Nitrite Negative (NEGATIVE) Urine Bilirubin Negative (NEGATIVE) Urine Urobilinogen 0.2 (0.2-1.0) EU/dL Ur Leukocyte Esterase Negative (NEGATIVE) Urine RBC Not seen (0-5) /HPF Urine WBC Not seen (0-5) /HPF Amorphous Sediment Moderate H (NOT SEEN) /HPF Urine Mucus Moderate H (NOT SEEN) /HPF Blood Type O POSITIVE 02/11/18 Range/Units 06:55 WBC (5.0-10.0) 10^3/uL RBC (4.50-6.00) 10^6/uL Hgb (14.0-18.0) g/dL Hct (40.0-54.0) % MCV (82.0-94.0) fL MCH (27.0-32.0) pg MCHC (33.0-38.0) g/dL RDW Coeff of Willa (11.0-15.0) % Plt Count (150-400) 10^3/uL Sodium 141 (136-145) mEq/L Potassium 2.9 L* D (3.5-5.0) mEq/L Chloride 106 (98-106) mEq/L Carbon Dioxide 25 (21-32) mmol/L BUN 25 H (7-18) mg/dL Creatinine 1.2 (0.7-1.3) mg/dL Est Cr Clr Drug Dosing 62.52 mL/min Estimated GFR (MDRD) > 60 (>=60) mL/min Glucose 170 H (75-99) mg/dL Calcium 8.3 L (8.4-10.1) mg/dL C-Reactive Protein 47.2 H (0.2-0.8) mg/dL Urine Color (YELLOW) Urine Appearance (CLEAR) Urine pH (4.5-8.0) Ur Specific Novelty (1.003-1.020) Urine Protein (NEGATIVE) mg/dL Urine Glucose (UA) (NEGATIVE) mg/dL Urine Ketones (NEGATIVE) mg/dL Urine Occult Blood (NEGATIVE) Urine Nitrite (NEGATIVE) Urine Bilirubin (NEGATIVE) Urine Urobilinogen (0.2-1.0) EU/dL Ur Leukocyte Esterase (NEGATIVE) Urine RBC (0-5) /HPF Urine WBC (0-5) /HPF Amorphous Sediment (NOT SEEN) /HPF Urine Mucus (NOT SEEN) /HPF Blood Type KATE Results - Last 24 hrs: Microbiology 02/10/18 11:08 Aerobic Blood Culture - Preliminary Blood - Venous - Lab Draw NO GROWTH AFTER 1 DAY Anaerobic Blood Culture - Preliminary NO GROWTH AFTER 1 DAY 02/10/18 11:00 Aerobic Blood Culture - Preliminary Blood - Venous NO GROWTH AFTER 1 DAY Anaerobic Blood Culture - Preliminary NO GROWTH AFTER 1 DAY Med Orders - Current: Current Medications Acetaminophen (Tylenol) 650 mg PO Q4H PRN PRN Reason: Pain (Mild 1-3)/fever Last Admin: 02/10/18 23:43 Dose: 650 mg Diphenhydramine HCl (Benadryl) 25 mg PO DAILY [facility] Last Admin: 02/11/18 07:50 Dose: 25 mg Famotidine (Pepcid) 20 mg PO DAILY [facility] Last Admin: 02/11/18 07:52 Dose: 20 mg Lactated Ringer's (Ringers, Lactated) 1,000 mls @ 150 mls/hr IV ASDIRECTED [facility] Last Admin: 02/11/18 07:48 Dose: 150 mls/hr Ibuprofen (Motrin) 400 mg PO Q6H PRN PRN Reason: Pain Last Admin: 02/11/18 07:53 Dose: 400 mg Loratadine (Claritin) 10 mg PO DAILY [facility] Last Admin: 02/11/18 07:51 Dose: 10 mg Losartan Potassium (Cozaar) 50 mg PO DAILY [facility] Last Admin: 02/11/18 07:51 Dose: 50 mg Magnesium Hydroxide (Milk Of Magnesia) 30 ml PO Q12H PRN PRN Reason: Constipation Meropenem (Merrem) 1 gm IVPUSH Q8H [facility] Last Admin: 02/11/18 03:14 Dose: 1 gm Metoprolol Succinate (Toprol Xl) 25 mg PO DAILY [facility] Last Admin: 02/11/18 07:52 Dose: 25 mg Ptom Magic Mouth (Wash Solution) 0 each PO Q3H PRN PRN Reason: SWISH AND SPIT Ondansetron HCl (Zofran) 4 mg IVPUSH Q6H PRN PRN Reason: Nausea Last Admin: 02/10/18 13:44 Dose: 4 mg Polyethylene Glycol (Miralax) 17 gm PO DAILY [facility] Last Admin: 02/11/18 07:52 Dose: Not Given Senna (Senna) 8.6 mg PO DAILY [facility] Last Admin: 02/11/18 07:52 Dose: Not Given Sertraline HCl (Zoloft) 50 mg PO DAILY [facility] Last Admin: 02/11/18 07:53 Dose: 50 mg Temazepam (Restoril) 15 mg PO BEDTIME PRN PRN Reason: Sleep Discontinued Medications Al Hydroxide/Mg Hydroxide 5 ml / Diphenhydramine HCl 12.5 mg/Lidocaine HCl 5 ml 0 ml PO ASDIRECTED PRN PRN Reason: Pain Lactated Ringer's (Ringers, Lactated) 1,000 mls @ 500 mls/hr IV .BOLUS ONE Stop: 02/10/18 12:52 Last Admin: 02/10/18 11:00 Dose: 500 mls/hr Lactated Ringer's (Ringers, Lactated) 1,000 mls @ 100 mls/hr IV ASDIRECTED [facility] Last Admin: 02/10/18 23:21 Dose: 100 mls/hr Potassium Chloride 40 meq/ (Premix) 100 mls @ 25 mls/hr IV ONETIME ONE Stop: 02/11/18 12:20 Last Admin: 02/11/18 08:35 Dose: 25 mls/hr - Exam General: Reports: Alert, Oriented HEENT: Reports: Mucous Membr. Moist/[place] Neck: Reports: Supple Lungs: Reports: Clear to Auscultation, Normal Respiratory Effort Cardiovascular: Reports: Regular Rhythm, Tachycardia GI/Abdominal Exam: Normal Bowel Sounds, Soft, Non-Tender Skin: Reports: Warm, Dry Neurological: Reports: No New Focal Deficit
== END 2018-02-11 10:45 | DRG 809 ==
LOC: CC.ED 10:11 → CC.MS 11:34 → UNDOADMIN 11:34 → CC.MS 11:37 → UNDOADMIN 11:37 → UNDODISIN 02-11 10:45
PROVIDERS: ADMIT Nurse Practitioner Family; ATTEND General Practice
PROC: 30233R1 Transfusion of Nonautologous Platelets into Peripheral Vein, Percutaneous Approach (ICD-10-PCS; principal; 2018-02-10)
DX: D70.9 Neutropenia, unspecified (principal); C83.30 Diffuse large B-cell lymphoma, unspecified site; R50.81 Fever presenting with conditions classified elsewhere; R53.1 Weakness; I10 Essential (primary) hypertension; E78.5 Hyperlipidemia, unspecified; E11.9 Type 2 diabetes mellitus without complications; N40.0 Benign prostatic hyperplasia without lower urinary tract symptoms; R11.0 Nausea; D69.59 Other secondary thrombocytopenia; T50.905A Adverse effect of unspecified drugs, medicaments and biological substances, initial encounter; D64.9 Anemia, unspecified; R53.83 Other fatigue; R06.02 Shortness of breath; R06.00 Dyspnea, unspecified; R11.2 Nausea with vomiting, unspecified; R19.7 Diarrhea, unspecified; R53.81 Other malaise; Z88.1 Allergy status to other antibiotic agents; Z88.5 Allergy status to narcotic agent; Z79.899 Other long term (current) drug therapy; Z87.442 Personal history of urinary calculi; R23.1 Pallor
CPT/HCPCS: 36415; 71046; 80048; 80053; 81001; 83605; 85025; 86140; 86900; 86901; 87040; 93005; 96360; 96361; 99285; A9270-GY; J2185; J2405; J3480; J7120